=== PATIENT | male | born 1960 | race Caucasian/White ===

== ENCOUNTER 2020-02-04 12:57 | Emergency (ER) | payer BC, OTHER ==
[2020-02-04] MEDS ORDERED: Lidocaine 1% (PF) 30 ML VIAL ONE (13:10)
[2020-02-04] MEDS ORDERED: Bacitracin 1 PK ONE ×2 (13:15→13:34)
== END 2020-02-04 13:41 | disposition home or self-care (01) ==
LOC: NAV ERS 12:57
DX: S61.012A Laceration without foreign body of left thumb without damage to nail, initial encounter (principal); F17.210 Nicotine dependence, cigarettes, uncomplicated; W26.0XXA Contact with knife, initial encounter
CPT/HCPCS: 12002; J2001